=== PATIENT | male | born 1995 | race Hispanic/Latino ===

== ENCOUNTER 2020-12-02 03:22 | Emergency (ER) | payer SELFPAY ==
[~2020-12-02] VITALS: Ht 154.9 cm; Wt 74.8 kg
[2020-12-02] MEDS ORDERED: KETOROLAC TROMETHAMINE 30 MG/ML VIAL IV STA (04:05)
[2020-12-02] MEDS ORDERED: SODIUM CHLORIDE 0.9% 1000ML 1,000 ML IV SCH (04:15)
[2020-12-02] MEDS ORDERED: KETOROLAC TROMETHAMINE 30 MG/ML VIAL ONE (04:34)
[2020-12-02] MEDS ORDERED: KETOROLAC TROME10 MG PO (05:35)
[2020-12-02] MEDS ORDERED: ONDANSETRON ODT4 MG PO (05:36)
[2020-12-02] MEDS ORDERED: FLOMAX0.4 MG PO (05:42)
[2020-12-02] MEDS ORDERED: HYDROCODON-ACE1 EA12 PO (05:44)
[2020-12-02 05:54] VITALS: BP 146/86
== END 2020-12-02 05:54 | disposition home or self-care (01) ==
LOC: FSED 04:07
DX: M54.5 Low back pain (principal); R11.2 Nausea with vomiting, unspecified; N20.0 Calculus of kidney; F17.210 Nicotine dependence, cigarettes, uncomplicated
CPT/HCPCS: 74176; 80053; 81003; 85025; 99284; J1885; J7030

== ENCOUNTER 2021-05-02 19:51 | Emergency (ER) | payer SELFPAY ==
[~2021-05-02] VITALS: Ht 154.9 cm; Wt 74.8 kg
[~2021-05-02 19:51] MED LIST: FLOMAX0.4 MG PO; HYDROCODON-ACE1 EA12 PO; KETOROLAC TROME10 MG PO; ONDANSETRON ODT4 MG PO
[2021-05-02] MEDS ORDERED: KETOROLAC TROMETHAMINE 30 MG/ML VIAL IV STA (21:05)
[2021-05-02] MEDS ORDERED: ONDANSETRON HCL INJ 2MG/ML 2ML 2 MG/ML VIAL IV STA (21:05)
[2021-05-02] MEDS ORDERED: SODIUM CHLORIDE 0.9% 1000ML 1,000 ML ONE (21:14)
[2021-05-02] MEDS ORDERED: ONDANSETRON HCL INJ 2MG/ML 2ML 2 MG/ML VIAL ONE (21:15)
[2021-05-02] MEDS ORDERED: SODIUM CHLORIDE 0.9% 1000ML 1,000 ML IV SCH (21:15)
[2021-05-02] MEDS ORDERED: HYDROCODONE/APAP 5MG-325MG TAB ONE (22:27)
[2021-05-02] MEDS ORDERED: PROMETHAZINE HCL (IM) 25 MG/ML VIAL IM ONE ×2 (22:35→22:45)
[2021-05-02] MEDS ORDERED: Morphine 4mg Syringe 4 MG/ML INJ IV ONE (22:45)
[2021-05-02] MEDS ORDERED: SODIUM CHLORIDE 0.9% 500ML 500 ML IV ONE (22:45)
[2021-05-02] MEDS ORDERED: CEFTRIAXONE 1 GM in SODIUM CHLORIDE 0.9% 50ML 50 ML IV ONE (22:45)
[2021-05-02] MEDS ORDERED: TAMSULOSIN HCL 0.4 MG CAP PO ONE (22:45)
[2021-05-02] MEDS ORDERED: TAMSULOSIN HCL 0.4 MG CAP ONE (22:57)
[2021-05-02] MEDS ORDERED: SODIUM CHLORIDE 0.9% 500ML 500 ML ONE (22:58)
[2021-05-02] MEDS ORDERED: Morphine 4mg Syringe 4 MG/ML INJ ONE (22:58)
[2021-05-02] MEDS ORDERED: CEFTRIAXONE 1 GM VIAL ONE (22:58)
[2021-05-03] MEDS ORDERED: HYDROCODON-ACE1 EA12 PO (00:05)
[2021-05-03] MEDS ORDERED: CEFUROXIME500 MG PO (00:05)
[2021-05-03] MEDS ORDERED: FLOMAX0.4 MG PO (00:05)
[2021-05-03] MEDS ORDERED: ONDANSETRON ODT4 MG PO (00:05)
[2021-05-03] MEDS ORDERED: KETOROLAC TROME10 MG PO (00:05)
[2021-05-03] MEDS ORDERED: HYDROCODONE/APAP 5MG-325MG TAB PO ONE (07:00)
== END 2021-05-03 00:47 | disposition home or self-care (01) ==
LOC: FSED 21:01
DX: R11.2 Nausea with vomiting, unspecified (principal); N20.2 Calculus of kidney with calculus of ureter; R10.9 Unspecified abdominal pain; F17.210 Nicotine dependence, cigarettes, uncomplicated
CPT/HCPCS: 74176; 80053; 81003; 85025; 99284; J0696; J1885; J2270; J2405; J2550; J7030; J7040